=== PATIENT | male | born 1955 | race Caucasian/White ===

== ENCOUNTER 2018-03-03 06:40 | Emergency (ER) | payer OTHER ==
[~2018-03-03] VITALS: Ht 170.2 cm; Wt 104.5 kg
[2018-03-03 07:34] VITALS: BP 152/97
== END 2018-03-03 07:38 | disposition home or self-care (01) ==
LOC: ER 06:40
DX: I10 Essential (primary) hypertension (principal)
CPT/HCPCS: 93005; 99283